=== PATIENT | female | born 1990 | race Caucasian/White ===

== ENCOUNTER 2024-01-18 08:54 | Outpatient (CLI) | payer MEDICAID ==
[2024-01-18 09:42] LABS: Hematocrit 38.9 % (34.9-44.5); Hemoglobin 12.3 g/dL (12.0-15.5); Mean Corpuscular HGB CONC 31.6 g/dL (32.0-36.0); Mean Corpuscular Hemoglobin 26.3 pg (27.0-33.0); Mean Corpuscular Volume 83.1 fL (81.6-98.3); Mean Platelet Volume 12.8 fL (7.4-10.4); Platelet Count 191 10x3/uL (150-450); RBC Distribution Width 13.8 % (11.5-14.5); Red Blood Cell (RBC) Count 4.68 10x6/uL (3.90-5.03); White Blood Cell (WBC) Count 6.7 10x3/uL (3.5-10.5)
[2024-01-18 09:50] LABS: Anion Gap 13 mmol/L (10-20); BUN (Urea Nitrogen) 11 mg/dL (7.0-18.7); Calc. Creatinine Clearance 0 mL/min (70-130); Calcium 9.3 mg/dL (7.8-10.44); Carbon Dioxide 23 mmol/L (22-29); Chloride 108 mmol/L (98-107); Estimated GFR 98; Glucose 113 mg/dL (70-105); Potassium 4.2 mmol/L (3.5-5.1); Sodium 140 mmol/L (136-145)
[2024-01-18 09:52] LABS: BHCG - Serum Negative (NEGATIVE); Pregs Control Background? CLEAR/WHITE (CLR/WHITE); Pregs Control Bar Appear? YES (CONTROL BAR)
[2024-01-18 10:09] LABS: Eosinophils 2 % (0-10); Lymphocytes 27 % (21-51); Monocytes 5 % (0-10); Neutrophil 64 % (42-75)
[2024-01-18 10:10] LABS: Hypochromia SLIGHT = 6-15 cells (100X) (0-5/hpf); Large Platelets SLIGHT (None Seen); MDiff Complete? YES; Platelet Adequacy Comment Appears Adequate
== END 2024-01-18 08:55 | disposition home or self-care (01) ==
LOC: LABBT 08:54
PROVIDERS: ATTEND Surgery
DX: Z01.812 Encounter for preprocedural laboratory examination (principal); K64.8 Other hemorrhoids
CPT/HCPCS: 80048; 84703; 85025